=== PATIENT | male | born 1950 | race Asian ===

== ENCOUNTER → 2017-10-08 | Outpatient (CLI) | payer OTHER | LOC: CIMAGING 15:47 | PROVIDERS: ATTEND Family Medicine | DX: J84.9 Interstitial pulmonary disease, unspecified (principal) | CPT/HCPCS: 71046-PO ==

== ENCOUNTER → 2018-05-27 | Outpatient (CLI) | payer OTHER | LOC: CIMAGING 15:47 | PROVIDERS: ATTEND Family Medicine | DX: M19.012 Primary osteoarthritis, left shoulder (principal) | CPT/HCPCS: 73060-PO ==